=== PATIENT | female | born 1985 | race Hispanic/Latino ===

== ENCOUNTER 2018-01-30 10:13 | Inpatient (IN) | payer BC ==
[~2018-01-30] VITALS: Ht 172.7 cm; Wt 73.5 kg
[2018-01-30] MEDS ORDERED: LACTATED RINGERS 1000ML 1,000 ML IV PRN (11:39)
[2018-01-30 11:40] LABS: BASOPHILS % (AUTO) 0.2 % (0.0-5.0); EOSINOPHILS % (AUTO) 0.5 % (0.0-8.0); HEMATOCRIT 41.4 % (36-48); LYMPHOCYTES % (AUTO) 15.3 % (21.0-51.0); MEAN CORPUSCULAR HEMOGLOBIN 32.4 pg (27.0-33.0); MEAN CORPUSCULAR HGB CONC 34.2 g/dL (32.0-36.0); MEAN CORPUSCULAR VOLUME 94.8 fL (79-99); MONOCYTES % (AUTO) 5.9 % (3.0-13.0); NEUTROPHILS % (AUTO) 78.1 % (40.0-77.0); PLATELET COUNT (AUTO) 207 K/uL (130-400); RED BLOOD CELL COUNT(AUTO) 4.37 MIL/uL (4.00-5.50); RED CELL DISTRIBUTION WIDTH 12.9 % (11.0-15.5)
[2018-01-30] MEDS ORDERED: OXYTOCIN-LR 20 UNITS/1000 ML 1,000 ML IV SCH ×2 (11:45→12:30)
[2018-01-30 11:48] LABS: CREATININE 0.5 mg/dL (0.5-1.5); POTASSIUM 3.8 mmol/L (3.5-5.1)
[2018-01-30 11:53] LABS: ALBUMIN 2.4 g/dL (3.5-5.0); BILIRUBIN,TOTAL 0.6 mg/dL (0.2-1.0); TOTAL PROTEIN, SERUM 7.2 g/dL (6.0-8.3); URIC ACID 3.7 mg/dL (2.6-7.2)
[2018-01-30] MEDS ORDERED: LACTATED RINGERS 500 ML 500 ML IV PRN ×2 (12:00→20:45)
[2018-01-30] MEDS ORDERED: BUTORPHANOL TARTRATE 2 MG/ML IVP PRN (12:00)
[2018-01-30] MEDS ORDERED: EPHEDRINE SULFATE 50 MG/ML AMPULE IM ONE (12:00)
[2018-01-30] MEDS ORDERED: DiphenhydrAMINE HCL 50 MG/ML VIAL IV PRN (12:00)
[2018-01-30] MEDS ORDERED: MISOPROSTOL 100 MCG TABLET VG PRN (12:00)
[2018-01-30] MEDS ORDERED: EPHEDRINE SULFATE 50 MG/ML AMPULE IVP PRN (12:00)
[2018-01-30] MEDS ORDERED: ONDANSETRON HCL 4 MG/2 ML VIAL IVP ONE (12:00)
[2018-01-30] MEDS ORDERED: NALOXONE HCL 0.4 MG/1 ML ML IV PRN (12:00)
[2018-01-30 12:03] LABS: APPEARANCE,URINE Clear (CLEAR); BILIRUBIN,URINE Negative (NEGATIVE); COLOR,URINE Yellow (YELLOW); GLUCOSE, URINE (UA) Negative (NEGATIVE); KETONES,URINE Negative (NEGATIVE); LEUKOCYTE ESTERASE ,URINE Moderate (NEGATIVE); NITRATE,URINE Negative (NEGATIVE); OCCULT BLOOD,URINE Negative (NEGATIVE); PROTEIN,URINE Negative (NEGATIVE)
[2018-01-30] MEDS ORDERED: MISOPROSTOL 100 MCG TABLET ONE (12:14)
[2018-01-30 12:16] LABS: INR 0.84 (0.85-1.15); PARTIAL THROMBOPLASTIN TIME 25.7 SEC (26.3-35.5); PROTHROMBIN TIME 8.8 SEC (9.6-11.6)
[2018-01-30 12:34] LABS: RBC,URINE None Seen /HPF (0-1)
[2018-01-30 12:35] LABS: BACTERIA,URINE Few /HPF (None Seen); MUCUS,URINE None Seen LPF (None Seen); SQUAMOUS EPITHELIAL CELL,UR Few /HPF (0-2)
[2018-01-30 12:36] LABS: AMORPHOUS SEDIMENT,UR Rare /LPF (None Seen); TRANSITIONAL EPI CELLS,URINE Rare /HPF (None Seen)
[2018-01-30] MEDS ORDERED: MEPERIDINE-PF 50 MG/ML SYG IVP ONE (20:45)
[2018-01-30] MEDS: PROMETHAZINE HCL 25 MG/ML 1ML AMPULE IM SCH (20:45)
[2018-01-30] MEDS ORDERED: ROPIVACAINE 0.2%200ML EPIDURAL 200 ML EP PRN (20:45)
[2018-01-31] MEDS ORDERED: LACTATED RINGERS 1000ML 1,000 ML IV ONE (05:46)
[2018-01-31] MEDS ORDERED: OXYTOCIN 10 USP UNITS/ML ONE ×2 (05:47→17:09)
[2018-01-31] MEDS ORDERED: OXYTOCIN 10 USP UNITS/ML 20 UNIT in LACTATED RINGERS 1000ML 1,000 ML IV SCH (06:00)
[2018-01-31 08:18] LABS: HEPATITIS Bs ANTIGEN SCREEN P Negative (Negative)
[2018-01-31 09:23] LABS: RAPID PLASMA REAGIN NONREACTIVE (NONREACTIVE)
[2018-01-31] MEDS ORDERED: CEFAZOLIN SODIUM 1 GM VIAL IVP PRN (11:15)
[2018-01-31] MEDS ORDERED: LACTATED RINGERS 1000ML 1,000 ML IV SCH (11:15)
[2018-01-31] MEDS ORDERED: SENSORCAINE/DEXT/PF 0.75% 2ML AMP IJ ONE (11:43)
[2018-01-31] MEDS ORDERED: DURAMORPH PF1 MG/ML 10ML AMP IV ONE (11:51)
[2018-01-31] MEDS ORDERED: CEFAZOLIN SODIUM 1 GM VIAL IVP ONE (12:00)
[2018-01-31] MEDS ORDERED: MIDAZOLAM HCL 1 MG/ML 2ML VIAL ONE (12:20)
[2018-01-31] MEDS ORDERED: GLYCOPYRROLATE 0.2 MG/ML 5 ML VIAL ONE (12:36)
[2018-01-31] MEDS ORDERED: ONDANSETRON HCL 4 MG/2 ML VIAL ONE ×2 (12:36→16:47)
[2018-01-31 15:45] VITALS: BP 114/52
[2018-01-31] MEDS ORDERED: OXYTOCIN-LR 20 UNITS/1000 ML 1,000 ML IV PRN (16:19)
[2018-01-31] MEDS ORDERED: MEPERIDINE-PF 75 MG/ML SYG IM PRN (16:30)
[2018-01-31] MEDS ORDERED: DEXTROSE 5 %-0.45 % NACL 1,000 ML IV PRN (16:30)
[2018-01-31] MEDS: DEXTROSE 5 %-0.45 % NACL 1,000 ML IV SCH ×2 (16:30→23:33)
[2018-01-31] MEDS ORDERED: HYDROCODONE/ACETAMINOPHEN 5/325 MG TAB ONE (16:43)
[2018-01-31] MEDS ORDERED: DIPH,PERTUSS(ACELL),TET VAC/PF 0.5 ML VIAL IM ONE (18:30)
[2018-01-31] MEDS ORDERED: HYDROCODONE/ACETAMINOPHEN 5/325 MG TAB PO PRN ×2 (18:45)
[2018-01-31] MEDS ORDERED: EPHEDRINE SULFATE 50 MG/ML AMPULE IVP PRN (18:45)
[2018-01-31] MEDS ORDERED: MORPHINE SULFATE 2 MG/ML 1ML SYG IVP PRN (18:45)
[2018-01-31] MEDS ORDERED: ONDANSETRON HCL 4 MG/2 ML VIAL IVP PRN ×2 (18:45)
[2018-01-31] MEDS ORDERED: NALOXONE HCL 0.4 MG/1 ML ML IVP PRN ×2 (18:45)
[2018-01-31] MEDS ORDERED: ONDANSETRON HCL 4 MG/2 ML 8 MG in SODIUM CHLORIDE 0.9% 50 ML IVP NR (18:45)
[2018-01-31] MEDS ORDERED: DiphenhydrAMINE HCL 50 MG/ML VIAL IVP PRN (18:45)
[2018-01-31] MEDS ORDERED: METOCLOPRAMIDE 10 MG/2 ML VIAL IVP PRN (18:45)
[2018-01-31] MEDS ORDERED: PROMETHAZINE HCL 25 MG/ML 1ML AMPULE IM PRN (18:45)
[2018-01-31 19:35] VITALS: BP 112/55
[2018-01-31] MEDS: PROMETHAZINE HCL 25 MG/ML 1ML AMPULE IM SCH (20:45)
[2018-01-31 23:35] VITALS: BP 105/56
[2018-02-01 04:20] VITALS: BP 89/54
[2018-02-01] MEDS: DEXTROSE 5 %-0.45 % NACL 1,000 ML IV SCH (06:12)
[2018-02-01 06:35] LABS: HEMATOCRIT 35.7 % (36-48); MEAN CORPUSCULAR HEMOGLOBIN 32.1 pg (27.0-33.0); MEAN CORPUSCULAR HGB CONC 34.1 g/dL (32.0-36.0); MEAN CORPUSCULAR VOLUME 94.2 fL (79-99); PLATELET COUNT (AUTO) 166 K/uL (130-400); RED BLOOD CELL COUNT(AUTO) 3.79 MIL/uL (4.00-5.50); WHITE BLOOD COUNT (AUTO) 14.1 K/uL (4.8-10.8)
[2018-02-01 07:25] VITALS: BP 104/61
[2018-02-01] MEDS ORDERED: ACETAMINOPHEN-CODEINE 300/30MG TAB PO PRN (08:30)
[2018-02-01] MEDS ORDERED: BISACODYL 10 MG SUPP.RECT RC PRN (08:30)
[2018-02-01] MEDS: SIMETHICONE 80 MG TAB.CHEW PO PRN ×4 (09:08→20:45)
[2018-02-01] MEDS: DOCUSATE SODIUM 100 MG CAP PO SCH ×2 (09:08→20:45)
[2018-02-01] MEDS: IBUPROFEN 800 MG TAB PO SCH ×2 (09:09→17:13)
[2018-02-01 12:10] VITALS: BP 95/55
[2018-02-01 19:15] VITALS: BP 103/70
[2018-02-01 23:09] VITALS: BP 97/61
[2018-02-02] MEDS: IBUPROFEN 800 MG TAB PO SCH ×2 (00:49→09:43)
[2018-02-02 03:25] VITALS: BP 98/63
[2018-02-02 08:16] VITALS: BP 105/60
[2018-02-02] MEDS: DOCUSATE SODIUM 100 MG CAP PO SCH (09:42)
[2018-02-02] MEDS: SIMETHICONE 80 MG TAB.CHEW PO PRN (09:42)
[2018-02-02 11:20] VITALS: BP 98/57
== END 2018-02-02 12:15 | disposition home or self-care (01) | DRG 765 ==
LOC: LDH 10:17 → OBSVTOIN 10:17 → WSH 01-31 15:30
PROVIDERS: ADMIT Obstetrics & Gynecology; ATTEND Obstetrics & Gynecology
PROC: 3E0234Z Introduction of Serum, Toxoid and Vaccine into Muscle, Percutaneous Approach (ICD-10-PCS; 2018-01-31)
PROC: 10D00Z1 Extraction of Products of Conception, Low, Open Approach (ICD-10-PCS; principal; 2018-01-31 12:00)
DX: O32.8XX0 Maternal care for other malpresentation of fetus, not applicable or unspecified (principal); K83.1 Obstruction of bile duct; O26.62 Liver and biliary tract disorders in childbirth; Z37.0 Single live birth; Z3A.37 37 weeks gestation of pregnancy; Z23 Encounter for immunization
CPT/HCPCS: 36415; 59510; 76815; 80053; 81001; 84550; 85025; 85027; 85384; 85610; 85730; 86592; 86701; 86850; 86900; 86901; 87340; 87390; 90715; A4344; A4606; J0690; J1200; J2250; J2274; J2405; J2590; J3490; J7120